=== PATIENT | male | born 1970 | race Two or more races ===

== ENCOUNTER 2022-12-18 02:07 | Emergency (ER) | payer MEDICAID ==
[~2022-12-18] VITALS: Ht 180.3 cm; Wt 95.0 kg
[2022-12-18] MEDS ORDERED: SODIUM CHLORIDE 0.9% 2,000 ML IV ONE (02:45)
[2022-12-18] MEDS ORDERED: ONDANSETRON HCL 4 MG/2 ML VIAL IV ONE (02:45)
[2022-12-18] MEDS ORDERED: HYDROcodone-ACET 5/325MG TAB PO ONE (02:45)
[2022-12-18 02:53] LABS: Basophils # (auto) 0.1 10 ^3/uL (0-0.2); Basophils % (auto) 0.8 % (0.0-2.0); Eosinophils # (auto) 0 10 ^3/uL (0-0.8); Eosinophils % (auto) 0.4 % (0.0-7.0); Hematocrit 46.3 % (41.0-53.0); Lymphocytes # (auto) 2.2 10 ^3/uL (0.4-5.4); Lymphocytes % (auto) 30.5 % (10.0-50.0); Mean Corpuscular Hemoglobin 25.8 pg (28.0-32.0); Mean Corpuscular Hgb Conc. 32.5 g/dL (32.0-36.0); Mean Corpuscular Volume 79.4 fL (80.0-100.0); Monocytes # (auto) 0.7 10 ^3/uL (0-1.3); Neutrophils # (auto) 4.3 10 ^3/uL (1.6-8.6); Neutrophils % (auto) 59.3 % (37.0-80.0); Nucleated Red Blood Cells % 0.1 %; Red Blood Cells 5.83 10^6/uL (4.5-5.90); White Blood Cell 7.3 10^3/uL (4.4-10.8)
[2022-12-18 03:09] LABS: Albumin 3.9 g/dL (3.4-5.0); BUN/Creatinine Ratio 11.8; Calcium 8.4 mg/dL (8.5-10.1); Potassium 4.1 mmol/L (3.5-5.1)
[2022-12-18 03:12] LABS: Bilirubin, Total 0.4 mg/dL (0.2-1.0); Total Protein 8.5 g/dL (6.4-8.2)
[2022-12-18] MEDS ORDERED: ACETAMINOPHEN 325 MG TAB PO ONE (03:45)
[2022-12-18 06:16] VITALS: BP 151/101
== END 2022-12-18 05:32 | disposition home or self-care (01) ==
LOC: ER 02:07
DX: E11.65 Type 2 diabetes mellitus with hyperglycemia (principal); R07.89 Other chest pain; I10 Essential (primary) hypertension
CPT/HCPCS: 36415; 71045; 80053; 83690; 83880; 84484; 85025; 93005; 96361; 96374; 99285; J2405; J7030

== ENCOUNTER 2023-03-05 01:00 | Emergency (ER) | payer MEDICAID ==
[~2023-03-05] VITALS: Ht 180.3 cm; Wt 91.0 kg
[~2023-03-05 01:00] MED LIST: FOLI1TAB6 PO; INSLANTI SC; INSU100I2 SC; LORA0.5T20 PO; MAGN241.4 PO; METF-370 PO; METO-289 PO; MULTTAB99 PO; PANT1INJ3 PO; THIA100T10 PO
[2023-03-05 01:48] LABS: Basophils # (auto) 0.1 10 ^3/uL (0-0.2); Eosinophils # (auto) 0.1 10 ^3/uL (0-0.8); Hemoglobin 14.5 g/dL (13.5-17.5); Monocytes # (auto) 0.7 10 ^3/uL (0-1.3); Neutrophils # (auto) 6.8 10 ^3/uL (1.6-8.6); Nucleated Red Blood Cells % 0.1 %
[2023-03-05 01:50] LABS: Basophils % (auto) 0.7 % (0.0-2.0); Eosinophils % (auto) 1.2 % (0.0-7.0); Hematocrit 44.8 % (41.0-53.0); Lymphocytes # (auto) 1.9 10 ^3/uL (0.4-5.4); Lymphocytes % (auto) 20.2 % (10.0-50.0); Mean Corpuscular Hemoglobin 25.9 pg (28.0-32.0); Mean Corpuscular Hgb Conc. 32.3 g/dL (32.0-36.0); Mean Corpuscular Volume 80.3 fL (80.0-100.0); Neutrophils % (auto) 70.9 % (37.0-80.0); Red Blood Cells 5.58 10^6/uL (4.5-5.90); Red Cell Distribution Width 18.7 % (11.8-14.3); White Blood Cell 9.6 10^3/uL (4.4-10.8)
[2023-03-05 01:59] LABS: INR 1.01 (0.9-1.15); Partial Thromboplastin Time 31.5 sec (24.6-33.4)
[2023-03-05 02:05] LABS: Albumin 3.7 g/dL (3.4-5.0); Calcium 8.5 mg/dL (8.5-10.1); Potassium 4.1 mmol/L (3.5-5.1)
[2023-03-05 02:11] LABS: BUN/Creatinine Ratio 19.3 (10.0-20.0); Bilirubin, Total 0.2 mg/dL (0.2-1.0); Total Protein 7.6 g/dL (6.4-8.2)
[2023-03-05 06:10] VITALS: BP 132/90
== END 2023-03-05 06:45 | disposition home or self-care (01) ==
LOC: ER 01:00 → EDBD 01:00 → ER 06:34
DX: F10.129 Alcohol abuse with intoxication, unspecified (principal); R42 Dizziness and giddiness; E11.9 Type 2 diabetes mellitus without complications; I10 Essential (primary) hypertension; E78.5 Hyperlipidemia, unspecified; Z88.6 Allergy status to analgesic agent; Y90.8 Blood alcohol level of 240 mg/100 ml or more
CPT/HCPCS: 36415; 70450; 71045; 71250; 74176; 80053; 80320; 82962; 83690; 83735; 84484; 85025; 85610; 85730; 93005

== ENCOUNTER 2023-03-11 12:31 | Inpatient (IN) | payer MEDICAID ==
[~2023-03-11] VITALS: Ht 177.8 cm; Wt 95.8 kg
[2023-03-11] MEDS ORDERED: SODIUM CHLORIDE 0.9% 1,000 ML IV ONE ×3 (12:45→14:15)
[2023-03-11] MEDS ORDERED: THIAMINE 100mg/ml INJ (200mg/2ml VIAL) IV ONE (12:45)
[2023-03-11 13:14] LABS: Basophils # (auto) 0 10 ^3/uL (0-0.2); Eosinophils # (auto) 0 10 ^3/uL (0-0.8); Eosinophils % (auto) 0.1 % (0.0-7.0); Lymphocytes # (auto) 1.3 10 ^3/uL (0.4-5.4); Mean Corpuscular Hemoglobin 25.5 pg (28.0-32.0); Monocytes # (auto) 0.6 10 ^3/uL (0-1.3); Nucleated Red Blood Cells % 0.1 %
[2023-03-11 13:17] LABS: Basophils % (auto) 0.1 % (0.0-2.0); Hematocrit 36.2 % (41.0-53.0); Hemoglobin 11.6 g/dL (13.5-17.5); Lymphocytes % (auto) 16.8 % (10.0-50.0); Mean Corpuscular Hgb Conc. 32.1 g/dL (32.0-36.0); Mean Corpuscular Volume 79.5 fL (80.0-100.0); Monocytes % (auto) 8.1 % (0.0-12.0); Neutrophils # (auto) 5.6 10 ^3/uL (1.6-8.6); Neutrophils % (auto) 74.9 % (37.0-80.0); Red Blood Cells 4.55 10^6/uL (4.5-5.90); Red Cell Distribution Width 18.6 % (11.8-14.3); White Blood Cell 7.5 10^3/uL (4.4-10.8)
[2023-03-11] MEDS ORDERED: SODIUM CHLORIDE 0.9% 1,000 ML IVB ONE (14:15)
[2023-03-11] MEDS ORDERED: FOLIC ACID 1 MG in D5W 5% 50 ML INJ SCH (14:15)
[2023-03-11 14:20] LABS: Calcium 7.2 mg/dL (8.5-10.1); Potassium 3.5 mmol/L (3.5-5.1)
[2023-03-11 14:30] LABS: BUN/Creatinine Ratio 10.2 (10.0-20.0); Bilirubin, Total 0.4 mg/dL (0.2-1.0); Total Protein 5.9 g/dL (6.4-8.2)
[2023-03-11] MEDS ORDERED: MORPHINE SULFATE INJ 2 MG/ml SYRG IV PRN (14:30)
[2023-03-11] MEDS ORDERED: SODIUM CHLORIDE 0.9% 2,000 ML IV ONE (14:30)
[2023-03-11] MEDS ORDERED: ONDANSETRON HCL 4 MG/2 ML VIAL IV PRN (14:30)
[2023-03-11] MEDS ORDERED: NITROGLYCERIN 0.4 MG SL TAB SL PRN (14:30)
[2023-03-11] MEDS ORDERED: ACETAMINOPHEN 325 MG TAB PO PRN (14:30)
[2023-03-11] MEDS ORDERED: PANTOPRAZOLE 40 MG/10 ML VIAL INJ IV ONE ×2 (14:30→14:45)
[2023-03-11] MEDS ORDERED: SODIUM CHLORIDE 0.9% 1,000 ML IV STA (14:38)
[2023-03-11] MEDS ORDERED: DEXTROSE (50%) 50ML SYRG IV PRN (14:45)
[2023-03-11] MEDS: FOLIC ACID 1 MG in D5W 5% 50 ML INJ SCH (15:05)
[2023-03-11] MEDS: SODIUM CHLORIDE 0.9% 1,000 ML IV SCH ×2 (15:24→21:41)
[2023-03-11 15:30] LABS: Cholesterol 106 mg/dL (< 200)
[2023-03-11 15:33] LABS: HDL Cholesterol 80 mg/dL (40-59); LDL Cholesterol 24 mg/dL (< 100); Triglycerides 88 mg/dL (< 150)
[2023-03-11 16:09] LABS: Urine Bacteria NONE SEEN /hpf (None Seen); Urine Blood 2+ /uL (Negative); Urine Specific Gravity 1.025 (1.001-1.035); Urine WBC 6 /hpf (0 - 3)
[2023-03-11] MEDS: ACCU-CHEK COMFORT CURVE STRIP VI SCH ×2 (17:28→22:01)
[2023-03-11] MEDS: InsuLIN REG 1unit/0.01ml Soln (100units/ml) SC SCH ×2 (17:32→22:00)
[2023-03-11] MEDS: LORazepam 2MG/ML-1ML VIAL IV PRN ×2 (17:37→20:10)
[2023-03-11] MEDS: MAGNESIUM OXIDE 400 MG TAB PO SCH (22:03)
[2023-03-12] MEDS: LORazepam 2MG/ML-1ML VIAL IV PRN ×3 (00:46→06:07)
[2023-03-12 00:55] VITALS: BP 137/70
[2023-03-12] MEDS: SODIUM CHLORIDE 0.9% 1,000 ML IV SCH ×2 (04:05→10:45)
[2023-03-12 05:00] VITALS: BP 134/70
[2023-03-12 06:21] LABS: Basophils # (auto) 0 10 ^3/uL (0-0.2); Basophils % (auto) 0.2 % (0.0-2.0); Eosinophils # (auto) 0 10 ^3/uL (0-0.8); Eosinophils % (auto) 0.3 % (0.0-7.0); Hematocrit 38.6 % (41.0-53.0); Hemoglobin 12.6 g/dL (13.5-17.5); Lymphocytes # (auto) 1.1 10 ^3/uL (0.4-5.4); Lymphocytes % (auto) 9.9 % (10.0-50.0); Mean Corpuscular Hemoglobin 25.9 pg (28.0-32.0); Mean Corpuscular Hgb Conc. 32.7 g/dL (32.0-36.0); Mean Corpuscular Volume 79.3 fL (80.0-100.0); Monocytes # (auto) 0.5 10 ^3/uL (0-1.3); Monocytes % (auto) 4.3 % (0.0-12.0); Neutrophils # (auto) 9.7 10 ^3/uL (1.6-8.6); Neutrophils % (auto) 85.3 % (37.0-80.0); Red Blood Cells 4.87 10^6/uL (4.5-5.90); Red Cell Distribution Width 18.6 % (11.8-14.3); White Blood Cell 11.4 10^3/uL (4.4-10.8)
[2023-03-12] MEDS: ACCU-CHEK COMFORT CURVE STRIP VI SCH ×2 (06:46→11:30)
[2023-03-12] MEDS: InsuLIN REG 1unit/0.01ml Soln (100units/ml) SC SCH ×2 (06:47→11:30)
[2023-03-12] MEDS: MAGNESIUM OXIDE 400 MG TAB PO SCH (09:30)
[2023-03-12] MEDS ORDERED: THIAMINE 100mg/ml INJ (200mg/2ml VIAL) IV SCH (10:00)
[2023-03-12] MEDS ORDERED: PANTOPRAZOLE 40 MG/10 ML VIAL INJ IV SCH ×2 (10:00)
[2023-03-12] MEDS ORDERED: MULTIPLE VITAMIN TAB PO SCH (10:00)
[2023-03-12] MEDS ORDERED: FOLIC ACID 1 MG TAB PO SCH (10:00)
[2023-03-12] MEDS: FOLIC ACID 1 MG in D5W 5% 50 ML INJ SCH (12:29)
[2023-03-12 13:00] VITALS: BP 141/92
[2023-03-12 15:05] VITALS: BP 140/88
[2023-03-14 10:31] LABS: Hepatitis C Antibody Negative (Negative)
== END 2023-03-12 16:00 | disposition home or self-care (01) | DRG 52 ==
LOC: EDBD 12:31 → ER 12:31 → TELE 14:28 → TELE-WESTW 23:28
PROVIDERS: ADMIT Nurse Practitioner Family; ATTEND Internal Medicine
DX: G92.8 Other toxic encephalopathy (principal); N17.9 Acute kidney failure, unspecified; E46 Unspecified protein-calorie malnutrition; F10.129 Alcohol abuse with intoxication, unspecified; E11.9 Type 2 diabetes mellitus without complications; I10 Essential (primary) hypertension; E86.0 Dehydration; E66.01 Morbid (severe) obesity due to excess calories; J98.11 Atelectasis; Z68.30 Body mass index [BMI] 30.0-30.9, adult
CPT/HCPCS: 36415; 70450; 71045; 80053; 80061; 80320; 81001; 82962; 83036; 84443; 84484; 85025; 86803; 87340; 96361; 96374; 96375; C9113; G0378; J1815; J2405; J7060

== ENCOUNTER 2023-04-15 08:18 | Inpatient (IN) | payer MEDICAID ==
[~2023-04-15] VITALS: Ht 180.3 cm; Wt 90.5 kg
[~2023-04-15 08:18] MED LIST changes: +FOLI-119 PO; -FOLI1TAB6 PO; +LORA-1121 PO; -LORA0.5T20 PO
[2023-04-15] MEDS ORDERED: THIAMINE 100mg/ml INJ (200mg/2ml VIAL) IV ONE (08:30)
[2023-04-15] MEDS ORDERED: SODIUM CHLORIDE 0.9% 1,000 ML IV ONE ×5 (08:30→17:15)
[2023-04-15 08:48] LABS: Basophils # (auto) 0 10 ^3/uL (0-0.2); Basophils % (auto) 0.6 % (0.0-2.0); Eosinophils # (auto) 0 10 ^3/uL (0-0.8); Eosinophils % (auto) 0.8 % (0.0-7.0); Hematocrit 42.7 % (41.0-53.0); Lymphocytes % (auto) 25.9 % (10.0-50.0); Mean Corpuscular Hemoglobin 26.7 pg (28.0-32.0); Mean Corpuscular Hgb Conc. 32.7 g/dL (32.0-36.0); Mean Corpuscular Volume 81.5 fL (80.0-100.0); Monocytes # (auto) 0.4 10 ^3/uL (0-1.3); Monocytes % (auto) 9.3 % (0.0-12.0); Neutrophils # (auto) 2.5 10 ^3/uL (1.6-8.6); Neutrophils % (auto) 63.4 % (37.0-80.0); Red Blood Cells 5.24 10^6/uL (4.5-5.90); Red Cell Distribution Width 18.3 % (11.8-14.3); White Blood Cell 3.9 10^3/uL (4.4-10.8)
[2023-04-15 09:16] LABS: Albumin 3.9 g/dL (3.4-5.0); Calcium 8.1 mg/dL (8.5-10.1); Potassium 3.9 mmol/L (3.5-5.1)
[2023-04-15 09:29] LABS: Bilirubin, Total 0.4 mg/dL (0.2-1.0); Total Protein 7.8 g/dL (6.4-8.2)
[2023-04-15 10:33] LABS: BUN/Creatinine Ratio 12.9 (10.0-20.0)
[2023-04-15] MEDS ORDERED: ONDANSETRON HCL 4 MG/2 ML VIAL IV ONE (10:45)
[2023-04-15] MEDS ORDERED: LORazepam 2MG/ML-1ML VIAL IV ONE ×2 (12:15→22:45)
[2023-04-15] MEDS ORDERED: ONDANSETRON HCL 4 MG/2 ML VIAL IV PRN (23:00)
[2023-04-15 23:24] LABS: Potassium 4.1 mmol/L (3.5-5.1)
[2023-04-15 23:25] LABS: BUN/Creatinine Ratio 14.1 (10.0-20.0)
[2023-04-16] MEDS: chlordiazePOXIDE HCL 25 MG CAP PO PRN ×3 (01:53→19:58)
[2023-04-16] MEDS ORDERED: PANT40TA57 PO (02:29)
[2023-04-16] MEDS ORDERED: ASPI-325 PO (02:29)
[2023-04-16] MEDS ORDERED: ATOR20TA50 PO (02:29)
[2023-04-16] MEDS ORDERED: ERGO1CAP12 PO (02:31)
[2023-04-16] MEDS ORDERED: GABA-1250 PO (02:31)
[2023-04-16] MEDS ORDERED: EMPA1TAB3 PO (02:31)
[2023-04-16] MEDS ORDERED: OLME1TAB71 PO (02:31)
[2023-04-16] MEDS ORDERED: DULA3INJ SC (02:31)
[2023-04-16] MEDS ORDERED: METO25TA36 PO (02:31)
[2023-04-16] MEDS ORDERED: METF-372 PO (02:31)
[2023-04-16] MEDS: TEMAZEPAM 15 MG CAP PO PRN ×2 (02:49→22:41)
[2023-04-16 05:00] VITALS: BP 141/81
[2023-04-16 08:00] VITALS: BP 143/90
[2023-04-16 08:10] VITALS: BP 143/90
[2023-04-16] MEDS ORDERED: PANTOPRAZOLE 40 MG TAB PO SCH (10:00)
[2023-04-16] MEDS: METOPROLOL SUCCINATE XL 50 MG TAB PO SCH (10:31)
[2023-04-16] MEDS ORDERED: DEXTROSE (50%) 50ML SYRG IV PRN (11:00)
[2023-04-16] MEDS ORDERED: PANTOPRAZOLE 40 MG/10 ML VIAL INJ IV ONE (11:00)
[2023-04-16] MEDS ORDERED: LORazepam 2MG/ML-1ML VIAL IV PRN (11:00)
[2023-04-16] MEDS ORDERED: BACLOFEN 10 MG TAB PO ONE (11:15)
[2023-04-16] MEDS ORDERED: GABAPENTIN 300 MG CAP PO ONE (11:15)
[2023-04-16] MEDS: ACCU-CHEK COMFORT CURVE STRIP VI SCH ×3 (11:43→22:42)
[2023-04-16] MEDS: SODIUM CHLORIDE 0.9% 1,000 ML IV SCH ×2 (11:48→19:59)
[2023-04-16] MEDS: InsuLIN REG 1unit/0.01ml Soln (100units/ml) SC SCH ×3 (11:55→22:44)
[2023-04-16 12:00] VITALS: BP 139/88
[2023-04-16] MEDS ORDERED: FOLIC ACID 1 MG, MULTIPLE VITAMIN 10 ML, MAGNESIUM SULF SDV 50% 8 MEQ, THIAMINE INJ 100... INJ SCH ×5 (12:00)
[2023-04-16 13:41] LABS: Urine Bacteria NONE SEEN /hpf (None Seen); Urine Blood 1+ /uL (Negative); Urine WBC 11 /hpf (0 - 3)
[2023-04-16] MEDS: FOLIC ACID 1 MG, MULTIPLE VITAMIN 10 ML, MAGNESIUM SULF SDV 50% 8 MEQ, THIAMINE INJ 100... INJ SCH ×5 (14:25)
[2023-04-16] MEDS: GABAPENTIN 300 MG CAP PO SCH ×2 (14:26→22:41)
[2023-04-16] MEDS: traMADol HCL 50 MG TAB PO PRN (15:49)
[2023-04-16 16:00] VITALS: BP 141/89
[2023-04-16] MEDS: CIPROFLOXACIN 0.3%OPTH(EYE) SOL 5ML EACHEYE SCH ×2 (18:32→22:42)
[2023-04-16 22:00] VITALS: BP 140/86
[2023-04-16] MEDS ORDERED: ATORVASTATIN 20 MG TAB PO SCH (22:00)
[2023-04-16] MEDS: PANTOPRAZOLE 40 MG/10 ML VIAL INJ IV SCH (22:41)
[2023-04-17 05:00] VITALS: BP 140/88
[2023-04-17] MEDS: ACCU-CHEK COMFORT CURVE STRIP VI SCH ×2 (06:08→11:55)
[2023-04-17] MEDS: InsuLIN REG 1unit/0.01ml Soln (100units/ml) SC SCH ×2 (06:08→11:57)
[2023-04-17] MEDS: GABAPENTIN 300 MG CAP PO SCH (06:08)
[2023-04-17] MEDS: traMADol HCL 50 MG TAB PO PRN (06:08)
[2023-04-17] MEDS: CIPROFLOXACIN 0.3%OPTH(EYE) SOL 5ML EACHEYE SCH ×2 (06:08→11:55)
[2023-04-17 07:18] LABS: Basophils # (auto) 0 10 ^3/uL (0-0.2); Basophils % (auto) 0.2 % (0.0-2.0); Eosinophils # (auto) 0.2 10 ^3/uL (0-0.8); Eosinophils % (auto) 3.6 % (0.0-7.0); Hemoglobin 12.1 g/dL (13.5-17.5); Lymphocytes # (auto) 1.5 10 ^3/uL (0.4-5.4); Lymphocytes % (auto) 24.5 % (10.0-50.0); Mean Corpuscular Hemoglobin 27.1 pg (28.0-32.0); Mean Corpuscular Hgb Conc. 32.8 g/dL (32.0-36.0); Mean Corpuscular Volume 82.6 fL (80.0-100.0); Monocytes # (auto) 0.5 10 ^3/uL (0-1.3); Monocytes % (auto) 8.4 % (0.0-12.0); Neutrophils # (auto) 3.9 10 ^3/uL (1.6-8.6); Neutrophils % (auto) 63.3 % (37.0-80.0); Nucleated Red Blood Cells % 0.2 %; Red Blood Cells 4.48 10^6/uL (4.5-5.90); Red Cell Distribution Width 18.2 % (11.8-14.3); White Blood Cell 6.2 10^3/uL (4.4-10.8)
[2023-04-17 07:21] LABS: Albumin 3.2 g/dL (3.4-5.0); BUN/Creatinine Ratio 19.4 (10.0-20.0); Calcium 8.1 mg/dL (8.5-10.1); Potassium 3.6 mmol/L (3.5-5.1)
[2023-04-17 07:24] LABS: Bilirubin, Total 0.5 mg/dL (0.2-1.0); Total Protein 6.6 g/dL (6.4-8.2)
[2023-04-17 08:05] VITALS: BP 140/88
[2023-04-17 09:00] VITALS: BP 138/91
[2023-04-17] MEDS ORDERED: LORA-1121 PO (09:43)
[2023-04-17] MEDS ORDERED: CIPR0.3S4 OP (09:43)
[2023-04-17] MEDS ORDERED: MULT-351 PO (09:43)
[2023-04-17] MEDS ORDERED: PANT40TA2 PO (09:47)
[2023-04-17] MEDS: METOPROLOL SUCCINATE XL 50 MG TAB PO SCH (09:59)
[2023-04-17] MEDS: PANTOPRAZOLE 40 MG/10 ML VIAL INJ IV SCH (09:59)
[2023-04-17 12:49] VITALS: BP_SYST 140; BP_SYST 152; BP_DIAS 88; BP_DIAS 95
[2023-04-17 13:30] VITALS: BP 152/95
[2023-04-17] MEDS: SODIUM CHLORIDE 0.9% 1,000 ML IV SCH (13:55)
[2023-04-17] MEDS: FOLIC ACID 1 MG, MULTIPLE VITAMIN 10 ML, MAGNESIUM SULF SDV 50% 8 MEQ, THIAMINE INJ 100... INJ SCH ×5 (13:55)
== END 2023-04-17 13:55 | disposition home or self-care (01) | DRG 241 ==
LOC: EDBD 08:18 → ER 08:18 → OVERFLOW 23:03 → CENTRAL 04-16 01:50
PROVIDERS: ADMIT Nurse Practitioner; ATTEND Internal Medicine
DX: K29.20 Alcoholic gastritis without bleeding (principal); E11.9 Type 2 diabetes mellitus without complications; F10.139 Alcohol abuse with withdrawal, unspecified; I10 Essential (primary) hypertension; F10.129 Alcohol abuse with intoxication, unspecified; Y90.9 Presence of alcohol in blood, level not specified; H10.9 Unspecified conjunctivitis; Z79.899 Other long term (current) drug therapy
CPT/HCPCS: 36415; 71045; 80048; 80053; 80320; 81001; 82962; 83036; 83690; 84484; 85025; 93005; 96361; 96374; 96375; 96376; C9113; G0378; J1815; J2405